=== PATIENT | female | born 1980 | race Caucasian/White ===

== ENCOUNTER 2018-08-29 09:01 | Inpatient (IN) | payer OTHER ==
[~2018-08-29] VITALS: Ht 165.1 cm; Wt 67.2 kg
[2018-08-29] MEDS ORDERED: D5%-LACTATED RINGERS 1,000 ML IV SCH (09:22)
[2018-08-29] MEDS ORDERED: OXYTOCIN 30U/ 0.9% NaCL 500ML 500 ML IV ONE (09:22)
[2018-08-29] MEDS ORDERED: LIDOCAINE 1%, 20ML ONE (09:27)
[2018-08-29] MEDS ORDERED: NEWBORN KIT ONE (09:27)
[2018-08-29] MEDS ORDERED: FENTANYL PF 100 MCG/2ML ONE (09:28)
[2018-08-29] MEDS ORDERED: OXYTOCIN 30U/ 0.9% NaCL 500ML 500 ML ONE ×2 (09:28→13:28)
[2018-08-29] MEDS ORDERED: MISOPROSTOL 200 MCG TABLET ONE (09:28)
[2018-08-29] MEDS ORDERED: FENTANYL PF 100 MCG/2ML IV PRN (09:30)
[2018-08-29] MEDS ORDERED: ONDANSETRON 2MG/ML, 2ML IVPush PRN (09:30)
[2018-08-29] MEDS ORDERED: METOCLOPRAMIDE 5 MG/ML, 2ML IVPush PRN (09:30)
[2018-08-29] MEDS ORDERED: TERBUTALINE 1 MG/ML, 1ML IVPush PRN (09:30)
[2018-08-29] MEDS ORDERED: SODIUM CITRATE/CITRIC ACID 15 ML UDC PO PRN (09:30)
[2018-08-29] MEDS ORDERED: FENTANYL PF 100 MCG/2ML IVPush PRN (09:30)
[2018-08-29] MEDS ORDERED: FENTANYL/BUPIV./NS/PF 250 ML EPIDCONT ONE ×2 (09:30→09:45)
[2018-08-29] MEDS: LACTATED RINGERS 1,000 ML IV SCH ×2 (09:34→09:59)
[2018-08-29 09:47] VITALS: BP 111/58
[2018-08-29] MEDS ORDERED: BUPIVACAINE 0.25% ONE (10:08)
[2018-08-29 10:14] LABS: BASOPHILS # (AUTO) 0.01 x10^3/uL (0-0.1); BASOPHILS % (AUTO) 0 % (0-1); EOSINOPHILS # (AUTO) 0.04 x10^3/uL (0-0.4); EOSINOPHILS % (AUTO) 0 % (1-7); LYMPHOCYTES # (AUTO) 1.31 x10^3/uL (1-3.4); LYMPHOCYTES % (AUTO) 14 % (22-44); MD NO; MEAN CORPUSCULAR HEMOGLOBIN 30.6 pg (27.0-34.8); MEAN CORPUSCULAR HGB CONC 34.4 g/dL (32.4-35.8); MEAN CORPUSCULAR VOLUME 88.9 fL (80-100); MEAN PLATELET VOLUME 8.4 fL (7.4-10.4); MONOCYTES % (AUTO) 3 % (2-9); NEUTROPHILS # (AUTO) 7.97 x10^3/uL (1.8-6.8); NEUTROPHILS % (AUTO) 83 % (42-75); PLATELET COUNT 194 x10^3/uL (130-400); RED BLOOD COUNT 4.59 x10^6/uL (3.82-5.3); RED CELL DISTRIBUTION WIDTH 14.3 % (9.6-15.2)
[2018-08-29] MEDS ORDERED: DIPH,PERTUSS(ACELL),TET VAC/PF NC IM-VACC ONE (10:59)
[2018-08-29] MEDS ORDERED: PREN1TAB60 PO (11:19)
[2018-08-29] MEDS ORDERED: CARBOPROST TROMETHAMINE 250 MCG/ML, 1ML IM PRN (13:00)
[2018-08-29] MEDS ORDERED: MISOPROSTOL 200 MCG TABLET PR PRN (13:00)
[2018-08-29] MEDS ORDERED: ONDANSETRON 2MG/ML, 2ML IV PRN (13:00)
[2018-08-29] MEDS ORDERED: DOCUSATE 100 MG CAPSULE PO PRN (13:00)
[2018-08-29] MEDS ORDERED: CALCIUM CARBONATE 500 MG TAB.CHEW PO PRN (13:00)
[2018-08-29] MEDS ORDERED: ACETAMINOPHEN 325 MG TABLET PO PRN ×2 (13:00)
[2018-08-29] MEDS ORDERED: HYDROcodone/APAP 5/325 TABLET PO PRN ×2 (13:00)
[2018-08-29] MEDS: OXYTOCIN 30U/ 0.9% NaCL 500ML 500 ML IV SCH ×2 (13:31→22:38)
[2018-08-29 16:00] VITALS: BP 111/65
[2018-08-29] MEDS: IBUPROFEN 600 MG TABLET PO PRN (18:21)
[2018-08-29 20:47] LABS: BASOPHILS # (AUTO) 0.07 x10^3/uL (0-0.1); BASOPHILS % (AUTO) 1 % (0-1); EOSINOPHILS # (AUTO) 0.01 x10^3/uL (0-0.4); EOSINOPHILS % (AUTO) 0 % (1-7); LYMPHOCYTES # (AUTO) 1.66 x10^3/uL (1-3.4); LYMPHOCYTES % (AUTO) 13 % (22-44); MD NO; MEAN CORPUSCULAR HEMOGLOBIN 30.6 pg (27.0-34.8); MEAN CORPUSCULAR HGB CONC 34.3 g/dL (32.4-35.8); MEAN CORPUSCULAR VOLUME 89.3 fL (80-100); MEAN PLATELET VOLUME 8.3 fL (7.4-10.4); MONOCYTES # (AUTO) 0.58 x10^3/uL (0.2-0.8); MONOCYTES % (AUTO) 4 % (2-9); NEUTROPHILS # (AUTO) 10.75 x10^3/uL (1.8-6.8); NEUTROPHILS % (AUTO) 82 % (42-75); PLATELET COUNT 193 x10^3/uL (130-400); RED BLOOD COUNT 4.42 x10^6/uL (3.82-5.3); RED CELL DISTRIBUTION WIDTH 14.1 % (9.6-15.2)
[2018-08-29 21:25] VITALS: BP 97/60
[2018-08-30 01:10] VITALS: BP 109/68
[2018-08-30] MEDS: IBUPROFEN 600 MG TABLET PO PRN ×2 (01:14→07:30)
[2018-08-30 05:00] VITALS: BP 99/63
[2018-08-30 07:30] VITALS: BP 125/79
[2018-08-30] MEDS ORDERED: PRENATAL VIT/IRON/FA 1 EACH TABLET PO SCH (09:00)
[2018-08-30] MEDS ORDERED: IBUP-1222 PO (14:29)
[2018-08-30] MEDS ORDERED: SENN-52 PO (14:29)
[2018-08-30] MEDS ORDERED: IBUPROFEN 600 MG TABLET ONE (14:45)
== END 2018-08-30 14:32 | disposition home or self-care (01) | DRG 807 ==
LOC: LDOP 09:01 → LDIP 09:22 → 2NW 15:53
PROVIDERS: ADMIT Obstetrics & Gynecology; ATTEND Obstetrics & Gynecology
PROC: 10907ZC Drainage of Amniotic Fluid, Therapeutic from Products of Conception, Via Natural or Artificial Opening (ICD-10-PCS; principal; 2018-08-29)
PROC: 10E0XZZ Delivery of Products of Conception, External Approach (ICD-10-PCS; 2018-08-29)
PROC: 3E0R3BZ Introduction of Anesthetic Agent into Spinal Canal, Percutaneous Approach (ICD-10-PCS; 2018-08-29)
PROC: 00HU33Z Insertion of Infusion Device into Spinal Canal, Percutaneous Approach (ICD-10-PCS; 2018-08-29)
DX: O70.9 Perineal laceration during delivery, unspecified (principal); Z37.0 Single live birth; Z3A.38 38 weeks gestation of pregnancy
CPT/HCPCS: 36415; 85025; 86850; 86900; G0378; J3010; J2590; J7120